=== PATIENT | female | born 1950 | race African-American/Black ===

== ENCOUNTER 2017-11-13 16:27 | Emergency (ER) | payer MEDICARE ==
[~2017-11-13] VITALS: Ht 167.6 cm; Wt 77.2 kg
[2017-11-13] MEDS ORDERED: SODIUM CHLORIDE 0.9% 1,000ML IVBOLUS ONE (17:00)
[2017-11-13] MEDS ORDERED: SODIUM CHLORIDE FLUSH 10ML SYR IVF ONE (17:00)
[2017-11-13 17:14] LABS: BASOPHILS # (AUTO) 0.05 x10^3/uL (0-0.1); BASOPHILS % (AUTO) 0 % (0-1); EOSINOPHILS % (AUTO) 0 % (1-7); LYMPHOCYTES # (AUTO) 1.65 x10^3/uL (1-3.4); LYMPHOCYTES % (AUTO) 13 % (22-44); MD NO; MEAN CORPUSCULAR HEMOGLOBIN 26.6 pg (27.0-34.8); MEAN CORPUSCULAR HGB CONC 32.4 g/dL (32.4-35.8); MEAN CORPUSCULAR VOLUME 82.1 fL (80-100); MONOCYTES # (AUTO) 0.93 x10^3/uL (0.2-0.8); MONOCYTES % (AUTO) 7 % (2-9); NEUTROPHILS # (AUTO) 10.58 x10^3/uL (1.8-6.8); NEUTROPHILS % (AUTO) 80 % (42-75); PLATELET COUNT 383 x10^3/uL (130-400); RED BLOOD COUNT 4.33 x10^6/uL (3.82-5.3); RED CELL DISTRIBUTION WIDTH 16.9 % (9.6-15.2)
[2017-11-13 17:26] LABS: ALANINE AMINOTRANSFERASE 13 U/L (12-78); ALBUMIN 3.3 g/dL (3.4-5.0); ANION GAP 7 mmol/L (5-15); CALCIUM 7.7 mg/dL (8.5-10.1); CHLORIDE 113 mmol/L (98-107); CREATININE 2.68 mg/dL (0.55-1.02)
[2017-11-13 17:28] LABS: ALKALINE PHOSPHATASE 117 U/L (45-117); BILIRUBIN,TOTAL 0.2 mg/dL (0.2-1.0); TOTAL PROTEIN 7.5 g/dL (6.4-8.2)
[2017-11-13 19:47] VITALS: BP 148/67
== END 2017-11-13 20:21 | disposition home or self-care (01) ==
LOC: ED 20:15
DX: R19.7 Diarrhea, unspecified (principal); R10.11 Right upper quadrant pain; R10.13 Epigastric pain; R10.12 Left upper quadrant pain; N18.3 Chronic kidney disease, stage 3 (moderate); M51.34 Other intervertebral disc degeneration, thoracic region; M51.36 Other intervertebral disc degeneration, lumbar region; M19.90 Unspecified osteoarthritis, unspecified site; E11.22 Type 2 diabetes mellitus with diabetic chronic kidney disease; I12.9 Hypertensive chronic kidney disease with stage 1 through stage 4 chronic kidney disease, or unspecified chronic kidney disease
CPT/HCPCS: 36415; 72146; 72148; 80053; 83690; 85025; 99285

== ENCOUNTER 2020-10-02 16:28 | Inpatient (IN) | payer MEDICARE ==
[~2020-10-02] VITALS: Ht 167.6 cm; Wt 67.5 kg
[~2020-10-02 16:28] MED LIST: ALLO300T PO; AMIO200T42 PO; AMLO-150 PO; APIX2.5T PO; ASPI-1026 PO; ATOR20TA37 PO; CALC0.25 PO; CARV6.252 PO; DEXT4TAB31 PO; ERGO500017 PO; FERR-51 PO; GLIM1TAB7 PO; HYDR-3342 PO; LISI5TAB7 PO; METO25TA91 PO; PANT40TA6 PO; SEVE800T8 PO; SIMV40TA20 PO
--- NOTE | 2020-10-02 16:48 | NUR ---
PT COMES IN C/O "I WAS AT [employer] WALKING AROUND AND I GOT THIS BOOM TO MY CHEST ABOUT 4 TIME" PT HAS HX OF AFIB AND HTN W/ RECENT PACER AND AICD PLACEMENT. ON EMS ARRIVAL PT IN AFIB W/RVR AT 160. PT WAS DISCHARGED FOR [facility] TODAY AT 1300. MONITORS CONNECTED. EKG COMPLETE. CALL LIGHT W/IN REACH Addendum: 10/02/20 at 1707 by HAROON PER CARDIOLOGY NOTE, PT HAD AICD PLACED 09/06/20, NO PACER
--- NOTE | 2020-10-02 17:06 | NUR ---
MD AT BEDSIDE FOR ASSESSMENT AND TO DISCUSS PLAN OF CARE
--- NOTE | 2020-10-02 17:22 | NUR ---
PT'S AICD INTERRAGATED PER MD REQUEST
[2020-10-02] MEDS ORDERED: SODIUM CHLORIDE FLUSH 10ML SYR IVF ONE (18:00)
[2020-10-02] MEDS ORDERED: AMIODARONE 450 MG in DEXTROSE 5% 241 ML IV PRN ×2 (18:00→20:00)
[2020-10-02] MEDS: FILTER 0.22 MICRON FOR AMIODARONE IV PRN (18:02)
[2020-10-02 18:15] LABS: BASOPHILS % (AUTO) 0 % (0-1); EOSINOPHILS % (AUTO) 0 % (1-7); LYMPHOCYTES % (AUTO) 7 % (22-44); MEAN CORPUSCULAR HEMOGLOBIN 28.6 pg (27.0-34.8); MEAN CORPUSCULAR HGB CONC 33.3 g/dL (32.4-35.8); MEAN PLATELET VOLUME 7.9 fL (7.4-10.4); MONOCYTES % (AUTO) 10 % (2-9); NEUTROPHILS % (AUTO) 82 % (42-75); PLATELET COUNT 244 x10^3/uL (130-400); RED BLOOD COUNT 2.99 x10^6/uL (3.82-5.3)
[2020-10-02 18:16] LABS: MD NO
[2020-10-02 18:27] LABS: ALBUMIN 3.1 g/dL (3.4-5.0); ANION GAP 10 mmol/L (5-15); CALCIUM 8.1 mg/dL (8.5-10.1); CHLORIDE 106 mmol/L (98-107); CREATININE 4.18 mg/dL (0.55-1.02)
[2020-10-02] MEDS ORDERED: SODIUM CHLORIDE FLUSH 10ML SYR IVF PRN (18:30)
--- NOTE | 2020-10-02 18:31 | NUR ---
PT RESTING ON ELEUTERIO. PT STATES HER AICD "JUST BEEPED". PER PT IT DID NOT SHOCK. VSS. NAD. CALL LIGHT W/IN REACH
--- NOTE | 2020-10-02 19:00 | NUR ---
REPORT GIVEN TO LEXII RODRÍGUEZ
--- NOTE | 2020-10-02 19:39 | NUR ---
REPORT GIVEN TO TR RODRÍGUEZ. PT RTG TO ROOM 518
[2020-10-02] MEDS ORDERED: ACETAMINOPHEN 325 MG TABLET PO PRN (20:00)
[2020-10-02] MEDS ORDERED: MELATONIN 5 MG TABLET PO PRN (20:00)
[2020-10-02] MEDS ORDERED: ONDANSETRON 2MG/ML, 2ML IVPush PRN (20:00)
[2020-10-02] MEDS ORDERED: hydrALAzine 20 MG/ML, 1ML IVPush PRN (20:00)
[2020-10-02 20:08] VITALS: BP 125/60
[2020-10-02 22:10] VITALS: BP 137/71
[2020-10-02] MEDS: METOPROLOL SUCCINATE 25 MG TAB.ER.24H PO SCH (22:13)
[2020-10-02] MEDS: APIXABAN 2.5 MG TABLET PO SCH (22:13)
[2020-10-02] MEDS: ATORVASTATIN 20 MG TABLET PO SCH (22:13)
[2020-10-03] MEDS ORDERED: NICOTINE GUM 2 MG BC PRN
[2020-10-03 01:03] VITALS: BP 147/79
[2020-10-03 05:16] LABS: BASOPHILS % (AUTO) 1 % (0-1); EOSINOPHILS % (AUTO) 0 % (1-7); LYMPHOCYTES % (AUTO) 16 % (22-44); MEAN CORPUSCULAR HEMOGLOBIN 28.2 pg (27.0-34.8); MEAN CORPUSCULAR HGB CONC 32.9 g/dL (32.4-35.8); MEAN PLATELET VOLUME 7.8 fL (7.4-10.4); MONOCYTES % (AUTO) 14 % (2-9); NEUTROPHILS % (AUTO) 69 % (42-75); PLATELET COUNT 227 x10^3/uL (130-400); RED BLOOD COUNT 2.86 x10^6/uL (3.82-5.3); RED CELL DISTRIBUTION WIDTH 16.1 % (9.6-15.2)
[2020-10-03 05:24] LABS: ANION GAP 6 mmol/L (5-15); CALCIUM 8.1 mg/dL (8.5-10.1); CHLORIDE 107 mmol/L (98-107); CREATININE 4.65 mg/dL (0.55-1.02)
[2020-10-03 05:27] LABS: MD NO
[2020-10-03] MEDS ORDERED: BRIN8DRO OP (06:32)
[2020-10-03 06:42] VITALS: BP 166/75
[2020-10-03] MEDS ORDERED: SEVELAMER CARBONATE 800MG TAB PO SCH (08:00)
[2020-10-03] MEDS ORDERED: POTASSIUM PHOSPHATE 22 MEQ in SODIUM CHLORIDE 0.9% 500 ML IV ONE (08:00)
[2020-10-03] MEDS ORDERED: MAGNESIUM SULFATE PMX 2GM/50ML 50 ML IV ONE (08:00)
[2020-10-03] MEDS: CALCITRIOL 0.25 MCG CAPSULE PO SCH (08:07)
[2020-10-03] MEDS: APIXABAN 2.5 MG TABLET PO SCH ×2 (08:07→20:49)
[2020-10-03] MEDS: LISINOPRIL 5 MG TABLET PO SCH (08:07)
[2020-10-03] MEDS: PANTOPRAZOLE 40MG TABLET PO SCH (08:07)
[2020-10-03] MEDS: SEVELAMER CARBONATE 800MG TAB PO SCH ×2 (12:10→16:36)
[2020-10-03 12:51] VITALS: BP 138/72
[2020-10-03] MEDS: FILTER 0.22 MICRON FOR AMIODARONE IV PRN (18:17)
[2020-10-03] MEDS ORDERED: AMIODARONE 150 MG in DEXTROSE 5% 100 ML IV ONE (18:30)
[2020-10-03] MEDS ORDERED: AMIODARONE 450 MG in DEXTROSE 5% 241 ML IV PRN (18:30)
[2020-10-03 20:47] VITALS: BP 136/84
[2020-10-03] MEDS: METOPROLOL SUCCINATE 25 MG TAB.ER.24H PO SCH (20:49)
[2020-10-03] MEDS: ATORVASTATIN 20 MG TABLET PO SCH (20:49)
[2020-10-04 02:30] VITALS: BP 118/56
[2020-10-04 05:33] LABS: ANION GAP 6 mmol/L (5-15); CALCIUM 8.2 mg/dL (8.5-10.1); CHLORIDE 105 mmol/L (98-107); CREATININE 5.14 mg/dL (0.55-1.02)
[2020-10-04] MEDS ORDERED: DIGOXIN 0.25 MG/ML, 2ML IVPush ONE (09:00)
[2020-10-04] MEDS: CALCITRIOL 0.25 MCG CAPSULE PO SCH (11:23)
[2020-10-04] MEDS: APIXABAN 2.5 MG TABLET PO SCH ×2 (11:24→20:11)
[2020-10-04] MEDS: SEVELAMER CARBONATE 800MG TAB PO SCH ×3 (11:24→17:19)
[2020-10-04] MEDS: LISINOPRIL 5 MG TABLET PO SCH (11:24)
[2020-10-04] MEDS: PANTOPRAZOLE 40MG TABLET PO SCH (11:24)
[2020-10-04] MEDS ORDERED: SEVE800T8 PO (11:25)
[2020-10-04] MEDS ORDERED: DIGO125T85 PO ×2 (11:25)
[2020-10-04] MEDS ORDERED: AMIO200T42 PO (11:25)
[2020-10-04 12:09] VITALS: BP 152/62
[2020-10-04 19:13] VITALS: BP 167/65
[2020-10-04 20:10] VITALS: BP 154/79
[2020-10-04] MEDS: ATORVASTATIN 20 MG TABLET PO SCH (20:11)
[2020-10-04] MEDS: METOPROLOL SUCCINATE 25 MG TAB.ER.24H PO SCH (20:11)
[2020-10-05 01:29] VITALS: BP 131/87
[2020-10-05 01:36] VITALS: BP 144/77
[2020-10-05] MEDS: CALCITRIOL 0.25 MCG CAPSULE PO SCH (08:12)
[2020-10-05] MEDS: APIXABAN 2.5 MG TABLET PO SCH ×2 (08:12→19:48)
[2020-10-05] MEDS: PANTOPRAZOLE 40MG TABLET PO SCH (08:12)
[2020-10-05] MEDS: LISINOPRIL 5 MG TABLET PO SCH (08:12)
[2020-10-05] MEDS: SEVELAMER CARBONATE 800MG TAB PO SCH ×3 (08:12→17:31)
[2020-10-05] MEDS: AMIODARONE 200 MG TABLET PO SCH (08:12)
[2020-10-05 08:15] VITALS: BP 149/78
[2020-10-05 15:59] VITALS: BP 134/68
[2020-10-05 18:37] VITALS: BP 158/72
[2020-10-05] MEDS: ATORVASTATIN 20 MG TABLET PO SCH (19:48)
[2020-10-05] MEDS: METOPROLOL SUCCINATE 50 MG TAB.ER.24H PO SCH (19:49)
[2020-10-05 22:46] LABS: CLOSTRIDIUM DIFFICILE ANTIGEN NEGATIVE; CLOSTRIDIUM DIFFICILE TOXIN NEGATIVE (Negative)
[2020-10-05] MEDS: DIPHENOXYLATE/ATROPINE TABLET PO PRN (23:38)
[2020-10-06] MEDS: DIPHENOXYLATE/ATROPINE TABLET PO PRN (01:03)
[2020-10-06 01:17] VITALS: BP 140/70
[2020-10-06 05:37] LABS: ALBUMIN 2.8 g/dL (3.4-5.0); ANION GAP 8 mmol/L (5-15); CALCIUM 7.9 mg/dL (8.5-10.1); CHLORIDE 108 mmol/L (98-107); CREATININE 4.64 mg/dL (0.55-1.02)
[2020-10-06 06:58] VITALS: BP 146/68
[2020-10-06] MEDS: AMIODARONE 200 MG TABLET PO SCH (07:55)
[2020-10-06] MEDS: SEVELAMER CARBONATE 800MG TAB PO SCH ×3 (08:00→17:00)
[2020-10-06] MEDS: LISINOPRIL 5 MG TABLET PO SCH (09:00)
[2020-10-06] MEDS: K-PHOS NEUTRAL 250MG TAB PO SCH ×2 (12:38→20:39)
[2020-10-06] MEDS: CALCITRIOL 0.25 MCG CAPSULE PO SCH (12:38)
[2020-10-06] MEDS: APIXABAN 2.5 MG TABLET PO SCH ×2 (12:38→20:39)
[2020-10-06] MEDS: PANTOPRAZOLE 40MG TABLET PO SCH (12:38)
[2020-10-06] MEDS ORDERED: MORPHINE SULFATE 4 MG/ML, 1ML IVPush PRN ×2 (14:30)
[2020-10-06 15:20] VITALS: BP 137/64
[2020-10-06] MEDS: DIGOXIN 0.125 MG TABLET PO SCH (18:02)
[2020-10-06 19:34] VITALS: BP 158/66
[2020-10-06] MEDS: METOPROLOL SUCCINATE 50 MG TAB.ER.24H PO SCH (20:39)
[2020-10-06] MEDS: ATORVASTATIN 20 MG TABLET PO SCH (20:39)
[2020-10-07 01:07] VITALS: BP 140/70
[2020-10-07 05:27] LABS: BASOPHILS % (AUTO) 0 % (0-1); EOSINOPHILS % (AUTO) 0 % (1-7); LYMPHOCYTES % (AUTO) 10 % (22-44); MEAN CORPUSCULAR HEMOGLOBIN 28.6 pg (27.0-34.8); MEAN CORPUSCULAR HGB CONC 33.5 g/dL (32.4-35.8); MEAN PLATELET VOLUME 7.7 fL (7.4-10.4); MONOCYTES % (AUTO) 12 % (2-9); NEUTROPHILS % (AUTO) 78 % (42-75); PLATELET COUNT 292 x10^3/uL (130-400); RED BLOOD COUNT 3.05 x10^6/uL (3.82-5.3); RED CELL DISTRIBUTION WIDTH 16.8 % (9.6-15.2)
[2020-10-07 05:39] LABS: MD NO
[2020-10-07 07:38] VITALS: BP 142/56
[2020-10-07] MEDS: CEFTRIAXONE PMX 1GM/50ML 50 ML IV SCH (07:42)
[2020-10-07] MEDS: METRONIDAZOLE PMX 500MG/100ML 100 ML IV SCH ×3 (08:47→23:23)
[2020-10-07] MEDS: APIXABAN 2.5 MG TABLET PO SCH ×2 (08:48→20:25)
[2020-10-07] MEDS: AMIODARONE 200 MG TABLET PO SCH (08:48)
[2020-10-07] MEDS: LISINOPRIL 5 MG TABLET PO SCH (08:49)
[2020-10-07] MEDS: CALCITRIOL 0.25 MCG CAPSULE PO SCH (08:49)
[2020-10-07] MEDS: PANTOPRAZOLE 40MG TABLET PO SCH (08:49)
[2020-10-07] MEDS: SEVELAMER CARBONATE 800MG TAB PO SCH ×3 (09:02→16:59)
[2020-10-07 15:00] VITALS: BP 154/64
[2020-10-07 19:28] VITALS: BP 150/59
[2020-10-07] MEDS: METOPROLOL SUCCINATE 50 MG TAB.ER.24H PO SCH (20:25)
[2020-10-07] MEDS: ATORVASTATIN 20 MG TABLET PO SCH (20:25)
[2020-10-08 01:45] VITALS: BP 130/71
[2020-10-08 05:41] LABS: BASOPHILS % (AUTO) 0 % (0-1); EOSINOPHILS % (AUTO) 0 % (1-7); LYMPHOCYTES % (AUTO) 10 % (22-44); MEAN CORPUSCULAR HEMOGLOBIN 27.9 pg (27.0-34.8); MEAN CORPUSCULAR HGB CONC 32.8 g/dL (32.4-35.8); MEAN PLATELET VOLUME 7.5 fL (7.4-10.4); MONOCYTES % (AUTO) 13 % (2-9); NEUTROPHILS % (AUTO) 77 % (42-75); PLATELET COUNT 296 x10^3/uL (130-400); RED BLOOD COUNT 3.19 x10^6/uL (3.82-5.3); RED CELL DISTRIBUTION WIDTH 16.2 % (9.6-15.2)
[2020-10-08 05:42] LABS: MD NO
[2020-10-08 05:48] LABS: CALCIUM 7.9 mg/dL (8.5-10.1); CHLORIDE 107 mmol/L (98-107)
[2020-10-08 05:52] LABS: ANION GAP 10 mmol/L (5-15); CREATININE 4.33 mg/dL (0.55-1.02)
[2020-10-08 07:25] VITALS: BP 131/67
[2020-10-08] MEDS: SEVELAMER CARBONATE 800MG TAB PO SCH ×2 (08:00→17:36)
[2020-10-08] MEDS: LISINOPRIL 5 MG TABLET PO SCH (09:00)
[2020-10-08] MEDS: PANTOPRAZOLE 40MG TABLET PO SCH (09:00)
[2020-10-08] MEDS ORDERED: DARBEPOETIN 100 MCG/ML SQ SCH (12:00)
[2020-10-08 13:28] VITALS: BP 132/71
[2020-10-08] MEDS: APIXABAN 2.5 MG TABLET PO SCH ×2 (13:38→19:58)
[2020-10-08] MEDS: DIGOXIN 0.125 MG TABLET PO SCH (13:38)
[2020-10-08] MEDS: METRONIDAZOLE PMX 500MG/100ML 100 ML IV SCH ×2 (13:38→19:58)
[2020-10-08] MEDS: CALCITRIOL 0.25 MCG CAPSULE PO SCH (13:38)
[2020-10-08] MEDS: AMIODARONE 200 MG TABLET PO SCH (13:39)
[2020-10-08] MEDS: CEFTRIAXONE PMX 1GM/50ML 50 ML IV SCH (13:40)
[2020-10-08 19:50] VITALS: BP 135/63
[2020-10-08] MEDS: ATORVASTATIN 20 MG TABLET PO SCH (19:58)
[2020-10-08] MEDS: METOPROLOL SUCCINATE 50 MG TAB.ER.24H PO SCH (19:58)
[2020-10-09 01:40] VITALS: BP 131/67
[2020-10-09] MEDS: METRONIDAZOLE PMX 500MG/100ML 100 ML IV SCH ×3 (04:43→21:45)
[2020-10-09 06:27] VITALS: BP 138/67
[2020-10-09] MEDS: CALCITRIOL 0.25 MCG CAPSULE PO SCH (07:46)
[2020-10-09] MEDS: PANTOPRAZOLE 40MG TABLET PO SCH (07:47)
[2020-10-09] MEDS: LISINOPRIL 5 MG TABLET PO SCH (07:47)
[2020-10-09] MEDS: AMIODARONE 200 MG TABLET PO SCH (07:47)
[2020-10-09] MEDS: SEVELAMER CARBONATE 800MG TAB PO SCH ×3 (07:48→17:29)
[2020-10-09] MEDS: APIXABAN 2.5 MG TABLET PO SCH ×2 (07:48→21:45)
[2020-10-09] MEDS: CEFTRIAXONE PMX 1GM/50ML 50 ML IV SCH (11:40)
[2020-10-09] MEDS: PSYLLIUM PACKET PO SCH ×2 (12:00→21:00)
[2020-10-09 12:34] VITALS: BP 155/62
[2020-10-09 18:42] VITALS: BP 147/55
[2020-10-09] MEDS: ATORVASTATIN 20 MG TABLET PO SCH (21:45)
[2020-10-09] MEDS: METOPROLOL SUCCINATE 50 MG TAB.ER.24H PO SCH (21:45)
[2020-10-10 03:33] VITALS: BP 167/78
[2020-10-10 05:22] LABS: BASOPHILS % (AUTO) 1 % (0-1); EOSINOPHILS % (AUTO) 0 % (1-7); LYMPHOCYTES % (AUTO) 17 % (22-44); MEAN CORPUSCULAR HEMOGLOBIN 28.6 pg (27.0-34.8); MEAN CORPUSCULAR HGB CONC 33.3 g/dL (32.4-35.8); MEAN PLATELET VOLUME 7.5 fL (7.4-10.4); MONOCYTES % (AUTO) 13 % (2-9); NEUTROPHILS % (AUTO) 69 % (42-75); PLATELET COUNT 270 x10^3/uL (130-400); RED BLOOD COUNT 3.11 x10^6/uL (3.82-5.3)
[2020-10-10 05:28] LABS: MD NO
[2020-10-10 05:33] LABS: ALBUMIN 2.7 g/dL (3.4-5.0); ANION GAP 10 mmol/L (5-15); CALCIUM 8.1 mg/dL (8.5-10.1); CHLORIDE 105 mmol/L (98-107); CREATININE 4.36 mg/dL (0.55-1.02)
[2020-10-10] MEDS: METRONIDAZOLE PMX 500MG/100ML 100 ML IV SCH ×3 (05:49→21:34)
[2020-10-10 06:22] VITALS: BP 137/68
[2020-10-10] MEDS: LISINOPRIL 5 MG TABLET PO SCH ×2 (08:30→20:35)
[2020-10-10] MEDS: APIXABAN 2.5 MG TABLET PO SCH ×2 (08:30→20:35)
[2020-10-10] MEDS: AMIODARONE 200 MG TABLET PO SCH (08:31)
[2020-10-10] MEDS: CALCITRIOL 0.25 MCG CAPSULE PO SCH (08:31)
[2020-10-10] MEDS: PANTOPRAZOLE 40MG TABLET PO SCH (08:31)
[2020-10-10] MEDS: PSYLLIUM PACKET PO SCH ×2 (08:35→19:45)
[2020-10-10] MEDS: SEVELAMER CARBONATE 800MG TAB PO SCH ×3 (08:39→17:37)
[2020-10-10] MEDS: DIGOXIN 0.125 MG TABLET PO SCH (08:45)
[2020-10-10] MEDS: CEFTRIAXONE PMX 1GM/50ML 50 ML IV SCH (11:57)
[2020-10-10 13:22] VITALS: BP 166/67
[2020-10-10 14:47] VITALS: BP 151/66
[2020-10-10 18:51] VITALS: BP 157/65
[2020-10-10] MEDS: METOPROLOL SUCCINATE 50 MG TAB.ER.24H PO SCH (20:34)
[2020-10-10] MEDS: ATORVASTATIN 20 MG TABLET PO SCH (20:34)
[2020-10-11 01:02] VITALS: BP 144/62
[2020-10-11 05:23] LABS: ANION GAP 10 mmol/L (5-15); CALCIUM 7.9 mg/dL (8.5-10.1); CHLORIDE 106 mmol/L (98-107); CREATININE 4.67 mg/dL (0.55-1.02)
[2020-10-11] MEDS: METRONIDAZOLE PMX 500MG/100ML 100 ML IV SCH ×2 (06:06→14:18)
[2020-10-11 06:32] VITALS: BP 159/70
[2020-10-11] MEDS: SEVELAMER CARBONATE 800MG TAB PO SCH ×3 (08:00→17:00)
[2020-10-11] MEDS: LISINOPRIL 5 MG TABLET PO SCH (11:58)
[2020-10-11] MEDS: CALCITRIOL 0.25 MCG CAPSULE PO SCH (11:58)
[2020-10-11] MEDS: PANTOPRAZOLE 40MG TABLET PO SCH (11:59)
[2020-10-11] MEDS: APIXABAN 2.5 MG TABLET PO SCH (11:59)
[2020-10-11] MEDS: PSYLLIUM PACKET PO SCH (11:59)
[2020-10-11] MEDS: AMIODARONE 200 MG TABLET PO SCH (11:59)
[2020-10-11] MEDS: CEFTRIAXONE PMX 1GM/50ML 50 ML IV SCH (12:13)
[2020-10-11 13:21] VITALS: BP 145/76
[2020-10-11] MEDS ORDERED: METO-93 PO (17:13)
[2020-10-11] MEDS ORDERED: LISI5TAB7 PO (17:13)
[2020-10-11] MEDS ORDERED: AMIO200T42 PO (17:13)
[2020-10-11] MEDS ORDERED: METR500T PO (17:17)
[2020-10-11] MEDS ORDERED: CEFD300C37 PO (17:17)
== END 2020-10-11 20:01 | disposition home or self-care (01) | DRG 314 ==
LOC: ED 17:32 → EDIP 18:22 → OBSVTOIN 18:22 → INTOOBSV 18:22 → 5SO 19:59
PROVIDERS: ADMIT Family Medicine; ATTEND Internal Medicine
PROC: 5A1D70Z Performance of Urinary Filtration, Intermittent, Less than 6 Hours Per Day (ICD-10-PCS; principal; 2020-10-04)
PROC: 5A1D70Z Performance of Urinary Filtration, Intermittent, Less than 6 Hours Per Day (ICD-10-PCS; 2020-10-06)
PROC: 5A1D70Z Performance of Urinary Filtration, Intermittent, Less than 6 Hours Per Day (ICD-10-PCS; 2020-10-08)
DX: T82.897A Other specified complication of cardiac prosthetic devices, implants and grafts, initial encounter (principal); N18.6 End stage renal disease; I13.2 Hypertensive heart and chronic kidney disease with heart failure and with stage 5 chronic kidney disease, or end stage renal disease; E87.1 Hypo-osmolality and hyponatremia; I50.22 Chronic systolic (congestive) heart failure; K57.32 Diverticulitis of large intestine without perforation or abscess without bleeding; I48.19 Other persistent atrial fibrillation; I48.92 Unspecified atrial flutter; I42.9 Cardiomyopathy, unspecified; I48.0 Paroxysmal atrial fibrillation; N25.0 Renal osteodystrophy; E83.51 Hypocalcemia; E11.649 Type 2 diabetes mellitus with hypoglycemia without coma; E11.22 Type 2 diabetes mellitus with diabetic chronic kidney disease; D63.1 Anemia in chronic kidney disease; E78.5 Hyperlipidemia, unspecified; F17.210 Nicotine dependence, cigarettes, uncomplicated; I34.0 Nonrheumatic mitral (valve) insufficiency; I49.5 Sick sinus syndrome; I70.0 Atherosclerosis of aorta; K43.9 Ventral hernia without obstruction or gangrene; N28.1 Cyst of kidney, acquired; N28.89 Other specified disorders of kidney and ureter; K52.9 Noninfective gastroenteritis and colitis, unspecified; M19.90 Unspecified osteoarthritis, unspecified site; Z99.2 Dependence on renal dialysis; Z95.810 Presence of automatic (implantable) cardiac defibrillator
CPT/HCPCS: 36415; 74176; 80048; 80162; 82040; 82962; 83690; 83735; 84100; 85025; 87324; 90935; 93005; 96374; 99285; G0378; J0696; J0881; J7060; J0282; J1160; J2270

== ENCOUNTER 2021-01-27 16:37 | Emergency (ER) | payer OTHER, MEDICARE ==
[~2021-01-27] VITALS: Ht 167.6 cm; Wt 64.0 kg
[~2021-01-27 16:37] MED LIST changes: +BRIN8DRO OP; +CEFD300C37 PO; +DIGO125T85 PO; +METO-93 PO; +METR500T PO
[2021-01-27 18:48] LABS: BASOPHILS % (AUTO) 1 % (0-1); EOSINOPHILS % (AUTO) 0 % (1-7); LYMPHOCYTES % (AUTO) 16 % (22-44); MEAN CORPUSCULAR HEMOGLOBIN 29.6 pg (27.0-34.8); MEAN CORPUSCULAR HGB CONC 33.3 g/dL (32.4-35.8); MONOCYTES % (AUTO) 11 % (2-9); NEUTROPHILS % (AUTO) 73 % (42-75); PLATELET COUNT 265 x10^3/uL (130-400); RED BLOOD COUNT 3.14 x10^6/uL (3.82-5.3); RED CELL DISTRIBUTION WIDTH 14.5 % (9.6-15.2)
[2021-01-27 18:58] LABS: ALANINE AMINOTRANSFERASE 169 U/L (12-78); ALBUMIN 3.2 g/dL (3.4-5.0); ANION GAP 9 mmol/L (5-15); CALCIUM 8.9 mg/dL (8.5-10.1); CHLORIDE 97 mmol/L (98-107); CREATININE 7.38 mg/dL (0.55-1.02)
[2021-01-27 19:00] LABS: ALKALINE PHOSPHATASE 90 U/L (45-117); BILIRUBIN,TOTAL 0.3 mg/dL (0.2-1.0); TOTAL PROTEIN 8.1 g/dL (6.4-8.2)
--- NOTE | 2021-01-27 19:04 | NUR ---
PT WAS AT HOME WHEN DIALYSIS CALLED AND WAS SENT TO ED BECAUSE HEMAGLOBIN LOW PER DIALYSIS PT REPORTS WEAKNESS. PT ATTACHED TO CARD. [id number].BP MONITORS. VSS. NADN. BED IN LOW POSITION, CALL LIGHT WITHIN REACH, RAILS ENGAGED. NO ADDIDTIONAL NEEDS OR QUESTIONS AT THIS TIME. WCTM.
--- NOTE | 2021-01-27 19:06 | NUR ---
PICC LINE IN RIGHT CHEST
[2021-01-27 20:57] VITALS: BP 110/54
== END 2021-01-27 21:43 | disposition home or self-care (01) ==
LOC: ED 21:10
DX: I12.0 Hypertensive chronic kidney disease with stage 5 chronic kidney disease or end stage renal disease (principal); N18.6 End stage renal disease; D63.1 Anemia in chronic kidney disease; R53.1 Weakness; R94.31 Abnormal electrocardiogram [ECG] [EKG]; E11.22 Type 2 diabetes mellitus with diabetic chronic kidney disease; E11.649 Type 2 diabetes mellitus with hypoglycemia without coma; I48.91 Unspecified atrial fibrillation; Z99.2 Dependence on renal dialysis; M19.90 Unspecified osteoarthritis, unspecified site; Z87.891 Personal history of nicotine dependence
CPT/HCPCS: 36415; 80053; 83735; 85025; 86850; 86900; 93005; 99283